=== PATIENT | female | born 1965 | race Caucasian/White ===

== ENCOUNTER → 2016-12-28 | Outpatient (CLI) | payer MEDICARE, MEDICAID ==
[2016-12-28 12:00] LABS: ABSOLUTE EOSINOPHILS # (AUTO) 0.3 10^3/uL (0.0-0.6); ABSOLUTE LYMPHOCYTES (AUTO) 3.6 10^3/uL (0.5-4.7); ABSOLUTE MONOCYTES (AUTO) 0.5 10^3/uL (0.1-1.4); ABSOLUTE NEUT (AUTO) 2.7 10^3/uL (1.7-8.2); BASOPHILS % (AUTO) 0.7 % (0-2); EOSINOPHILS % (AUTO) 3.9 % (0-6); HEMATOCRIT 31.7 % (36.0-47.0); HEMOGLOBIN 10.8 g/dL (12.0-15.5); HGB HCT DIFFERENCE 0.7; LYMPHOCYTES % (AUTO) 50.1 % (13-45); MEAN CORPUSCULAR HEMOGLOBIN 32.1 pg (27.0-33.4); MEAN CORPUSCULAR VOLUME 94 fl (80-97); MONOCYTES % (AUTO) 7.2 % (3-13); RED BLOOD COUNT 3.36 10^6/uL (3.72-5.28); RED CELL DISTRIBUTION WIDTH 13.1 % (11.5-14.0); SEGMENTED NEUTROPHILS % (AUTO) 38.1 % (42-78); WHITE BLOOD COUNT 7.1 10^3/uL (4.0-10.5)
[2016-12-28 12:26] LABS: ALANINE AMINOTRANSFERASE 35 U/L (9-52); ALBUMIN 4.3 g/dL (3.5-5.0); ALKALINE PHOSPHATASE 62 U/L (38-126); ANION GAP 10 (5-19); ASPARTATE AMINO TRANSFERASE 30 U/L (14-36); BILIRUBIN,TOTAL 0.4 mg/dL (0.2-1.3); BLOOD UREA NITROGEN 11 mg/dL (7-20); CALCIUM 9.2 mg/dL (8.4-10.2); CARBON DIOXIDE 28 mmol/L (22-30); CHLORIDE 98 mmol/L (98-107); CHOLESTEROL 152.02 mg/dL (0-200); CREATININE RESULT 0.77 mg/dL (0.52-1.25); Direct HDL 56 mg/dL (>40); GLUCOSE 86 mg/dL (75-110); POTASSIUM 4.4 mmol/L (3.6-5.0); TOTAL PROTEIN 6.6 g/dL (6.3-8.2); TRIGLYCERIDES 166 mg/dL (<150)
[2016-12-28 12:38] LABS: DIRECT LDL 74 mg/dL (<100)
[2016-12-28 12:42] LABS: ERYTHROCYTE SEDIMENTATION RATE 18 mm/hr (0-30)
[2016-12-28 13:18] LABS: VLDL CHOLESTEROL 33.2 mg/dL (10-31)
== END ==
LOC: OD 11:15
DX: R53.83 Other fatigue (principal); Z79.899 Other long term (current) drug therapy
CPT/HCPCS: 36415; 80053; 80061; 82607; 83036; 84443; 85025; 85652

== ENCOUNTER → 2017-01-26 | Outpatient (CLI) | payer MEDICARE ==
[2017-01-26 12:23] LABS: ERYTHROCYTE SEDIMENTATION RATE 15 mm/hr (0-30)
[2017-01-26 13:08] LABS: FOLATE > 20.00 ng/mL (>2.76)
[2017-01-27 13:39] LABS: JO-1 ANTIBODY <0.2 AI (0.0-0.9)
== END ==
LOC: OD 11:02
DX: R06.02 Shortness of breath (principal); D64.9 Anemia, unspecified
CPT/HCPCS: 36415; 71020; 82728; 82746; 83540; 83550; 85045; 85652; 86225; 86235; 86592

== ENCOUNTER → 2017-01-27 | Outpatient (CLI) | payer MEDICARE | LOC: RAD 11:16 | DX: G45.9 Transient cerebral ischemic attack, unspecified (principal); I63.9 Cerebral infarction, unspecified | CPT/HCPCS: 70450 ==

== ENCOUNTER → 2017-02-02 | Outpatient (CLI) | payer MEDICARE, MEDICAID ==
[2017-02-02 14:49] LABS: HIV 1/2 AB DIFFERENTIATION HIV PANEL
== END ==
LOC: OD 13:22
DX: I65.29 Occlusion and stenosis of unspecified carotid artery (principal); G45.9 Transient cerebral ischemic attack, unspecified; M35.00 Sjogren syndrome, unspecified; D64.9 Anemia, unspecified; R53.83 Other fatigue
CPT/HCPCS: 36415; 80074; 86701; 86702

== ENCOUNTER → 2017-02-03 | Outpatient (CLI) | payer MEDICARE | LOC: WI 09:41 | DX: Z12.31 Encounter for screening mammogram for malignant neoplasm of breast (principal); Z78.0 Asymptomatic menopausal state; M85.88 Other specified disorders of bone density and structure, other site | CPT/HCPCS: 77080 ==

== ENCOUNTER → 2017-02-06 | Outpatient (CLI) | payer MEDICAID, MEDICARE | LOC: SP 13:55 | DX: I65.29 Occlusion and stenosis of unspecified carotid artery (principal) | CPT/HCPCS: 93880 ==

== ENCOUNTER → 2017-03-01 | Outpatient (CLI) | payer MEDICARE | LOC: RAD 09:50 | DX: N64.4 Mastodynia (principal) | CPT/HCPCS: 76642; G0279; G0204; 77062; 77066 ==

== ENCOUNTER 2017-03-27 17:54 | Emergency (ER) | payer MEDICARE ==
[2017-03-27] MEDS ORDERED: NORMAL SALINE 1000 ML 1,000 ML IV ONE (18:20)
--- NOTE | 2017-03-27 18:22 | ER Document Report ---
ED Medical Screen (RME) - General Chief Complaint: Shortness Of Breath Stated Complaint: SHORTNESS OF BREATH Time Seen by Provider: 03/27/17 18:17 TRAVEL OUTSIDE OF THE [place] IN LAST 30 DAYS: No - HPI Notes: 03/27/17 18:21 Patient coming in to rule out PE after recent neck surgery neck fusion 2 weeks ago at [place]. - Related Data Allergies/Adverse Reactions: No Known Allergies Allergy (Verified 03/27/17 18:17) Past Medical History Renal/ Medical History: Denies: Hx Peritoneal Dialysis Psychiatric Medical History: Reports: Hx Bipolar Disorder Past Surgical History: Reports: Hx Appendectomy, Hx Orthopedic Surgery Review of Systems - Review of Systems Respiratory: Short of breath Physical Exam - Vital signs Vitals: Temp Pulse Resp BP Pulse Ox 98.2 F 94 14 123/73 97 03/27/17 17:59 03/27/17 17:59 03/27/17 17:59 03/27/17 17:59 03/27/17 17:59 - Respiratory Respiratory status: No respiratory distress Chest status: Nontender Breath sounds: Normal Chest palpation: Normal Course - Re-evaluation Re-evalutation: 03/27/17 18:22 I have greeted and performed a rapid initial assessment of this patient. A comprehensive ED assessment and evaluation of the patient, analysis of test results and completion of the medical decision making process will be conducted by additional ED providers. - Vital Signs Vital signs: Temp Pulse Resp BP Pulse Ox 98.2 F 94 14 123/73 97 03/27/17 17:59 03/27/17 17:59 03/27/17 17:59 03/27/17 17:59 03/27/17 17:59
[2017-03-27 19:09] LABS: ABSOLUTE EOSINOPHILS # (AUTO) 0.2 10^3/uL (0.0-0.6); ABSOLUTE LYMPHOCYTES (AUTO) 3.7 10^3/uL (0.5-4.7); ABSOLUTE MONOCYTES (AUTO) 0.7 10^3/uL (0.1-1.4); ABSOLUTE NEUT (AUTO) 4.9 10^3/uL (1.7-8.2); BASOPHILS % (AUTO) 0.5 % (0-2); HEMATOCRIT 33.2 % (36.0-47.0); HEMOGLOBIN 11.2 g/dL (12.0-15.5); HGB HCT DIFFERENCE 0.4; LYMPHOCYTES % (AUTO) 38.6 % (13-45); MEAN CORPUSCULAR HGB CONC 33.9 g/dL (32.0-36.0); MEAN CORPUSCULAR VOLUME 94 fl (80-97); MONOCYTES % (AUTO) 6.9 % (3-13); RED BLOOD COUNT 3.51 10^6/uL (3.72-5.28); RED CELL DISTRIBUTION WIDTH 13.4 % (11.5-14.0); WHITE BLOOD COUNT 9.5 10^3/uL (4.0-10.5)
[2017-03-27 19:17] LABS: PROTHROMBIN TIME 11.8 SEC (11.4-15.4)
--- NOTE | 2017-03-27 19:17 | ER Document Report ---
ED General - General Mode of Arrival: Ambulatory Information source: Patient TRAVEL OUTSIDE OF THE [place] IN LAST 30 DAYS: No - HPI Patient complains to provider of: shortness of breath Associated symptoms: Other - See above <AMANDA RAHMAN - Last Filed: 03/27/17 19:48> <SIOBHAN ALEJANDRE - Last Filed: 03/27/17 21:37> - General Chief Complaint: Shortness Of Breath Stated Complaint: SHORTNESS OF BREATH Time Seen by Provider: 03/27/17 18:17 Notes: Patient is a 51 year old female who presents to the emergency department complaining of shortness of breath onset 4-5 days ago. Patient reports the shortness has been worsening and keeping her up at night. Patient also states that she has the urge to cough but tries to restrain it. Patient had an anterior cervical fusion surgery performed 2 weeks ago. Patient denies chest pain. Patient was told to come to the ED by her surgeon. PCP: [facility] (AMANDA RAHMAN) - Related Data Allergies/Adverse Reactions: No Known Allergies Allergy (Verified 03/27/17 18:17) Past Medical History - General Information source: Patient - Social History Smoking Status: Never Smoker Family History: Reviewed & Not Pertinent Patient has suicidal ideation: No Patient has homicidal ideation: No Psychiatric Medical History: Reports: Hx Bipolar Disorder Past Surgical History: Reports: Hx Appendectomy, Hx Orthopedic Surgery <AMANDA RAHMAN - Last Filed: 03/27/17 19:48> Review of Systems - Review of Systems Constitutional: No symptoms reported EENT: No symptoms reported Cardiovascular: denies: Chest pain Respiratory: See HPI, Cough, Short of breath Gastrointestinal: No symptoms reported Genitourinary: No symptoms reported Female Genitourinary: No symptoms reported Musculoskeletal: No symptoms reported Skin: No symptoms reported Hematologic/Lymphatic: No symptoms reported Neurological/Psychological: No symptoms reported -: Yes All other systems reviewed and negative <AMANDA RAHMAN - Last Filed: 03/27/17 19:48> Physical Exam - Vital signs Interpretation: Normal - General General appearance: Appears well, Alert - HEENT Head: Normocephalic, Atraumatic, Other - wearing soft neck collar - Respiratory Respiratory status: No respiratory distress - Abdominal Inspection: Normal - Extremities General upper extremity: Normal inspection General lower extremity: Normal inspection - Neurological Neuro grossly intact: Yes Cognition: Normal Orientation: AAOx4 Luis Coma Scale Eye Opening: Spontaneous Luis Coma Scale Verbal: Oriented Luis Coma Scale Motor: Obeys Commands Luis Coma Scale Total: 15 Speech: Normal - Psychological Associated symptoms: Normal affect, Normal mood - Skin Skin Temperature: Warm Skin Moisture: Dry Skin Color: Normal <AMANDA RAHMAN - Last Filed: 03/27/17 19:48> Course - Laboratory Result Diagrams: 03/27/17 18:40 03/27/17 18:40 <AMANDA RAHMAN - Last Filed: 03/27/17 19:48> - Laboratory Result Diagrams: 03/27/17 18:40 03/27/17 18:40 - Diagnostic Test Radiology reviewed: Image reviewed, Reports reviewed - CTA chest is completely normal, specifically no pulmonary emboli. <SIOBHAN ALEJANDRE - Last Filed: 03/27/17 21:37> - Vital Signs Vital signs: Temp Pulse Resp BP Pulse Ox 98.2 F 94 14 123/73 97 03/27/17 17:59 03/27/17 17:59 03/27/17 17:59 03/27/17 17:59 03/27/17 17:59 - Laboratory Laboratory results interpreted by me: 03/27/17 03/27/17 18:40 18:40 RBC 3.51 L Hgb 11.2 L Hct 33.2 L Carbon Dioxide 31 H BUN 4 L ALT 59 H Discharge <AMANDA RAHMAN - Last Filed: 03/27/17 19:48> <PILISIOBHAN - Last Filed: 03/27/17 21:37> - Discharge Clinical Impression: Dyspnea Qualifiers: Dyspnea type: shortness of breath Qualified Code(s): R06.02 - Shortness of breath Condition: Stable Disposition: HOME, SELF-CARE Additional Instructions: Dyspnea, Nonspecific: You were evaluated for shortness of breath, or dyspnea. Dyspnea has many causes, and some are more serious than others. Sometimes it's impossible to diagnose the cause of dyspnea with the tests that are available on an emergency basis. Based on our evaluation today, you do not need hospitalization now. We found no evidence of pneumonia, collapsed lung, blood clots in the lung, tumors , or heart failure. Causes of non-specific dyspnea can include asthma or bronchospasm, hyperventilation, emotional distress, heart disease, emphysema, fibrosis of the lung, and stiffness of the chest wall. In healthy individuals with a single episode, it's sometimes reasonable to do nothing but wait to see if the problem occurs again. Additional tests used to evaluate dyspnea can include cardiac stress testing, echocardiography, pulmonary function testing, CAT scan of the chest, bronchoscopy or pulmonary biopsy. Return if shortness of breath persists or worsens, or if you develop chest pain, fever, cough, confusion, or fainting. The CT scan scan of your chest did not show any abnormalities. There is no clear explanation for your symptoms of shortness of breath. Continue your regular medications. Follow-up with your doctor for recheck and further evaluation if not improving. RETURN TO THE EMERGENCY ROOM IF ANY NEW OR WORSENING SYMPTOMS. Harry Attestation: 03/27/17 21:37 I personally performed the services described in the documentation, reviewed and edited the documentation which was dictated to the scribe in my presence, and it accurately records my words and actions. (SIOBHAN ALEJANDRE) Scribe Documentation - Scribe Written by Harry:: harry Hampton, 03/27/17, 191 acting as scribe for :: Pili <AMANDA RAHMAN - Last Filed: 03/27/17 19:48>
[2017-03-27 19:18] LABS: PARTIAL THROMBOPLASTIN TIME 34.8 SEC (23.5-35.8)
[2017-03-27 19:29] LABS: ALANINE AMINOTRANSFERASE 59 U/L (9-52); ALBUMIN 4.2 g/dL (3.5-5.0); ALKALINE PHOSPHATASE 86 U/L (38-126); ANION GAP 10 (5-19); ASPARTATE AMINO TRANSFERASE 27 U/L (14-36); BILIRUBIN,DIRECT 0.3 mg/dL (0.0-0.4); BILIRUBIN,TOTAL 0.3 mg/dL (0.2-1.3); BLOOD UREA NITROGEN 4 mg/dL (7-20); CARBON DIOXIDE 31 mmol/L (22-30); CHLORIDE 99 mmol/L (98-107); CREATININE RESULT 0.71 mg/dL (0.52-1.25); GLUCOSE 96 mg/dL (75-110); LIPASE 60.6 U/L (23-300); POTASSIUM 4.2 mmol/L (3.6-5.0); TOTAL PROTEIN 7.1 g/dL (6.3-8.2)
--- NOTE | 2017-03-27 21:32 | EKG REPORT ---
SEVERITY:- NORMAL ECG - SINUS RHYTHM : Confirmed by: Bryan Carreon 27-Mar-2017 21:32:08
[2017-03-27 21:42] VITALS: BP 123/72
== END 2017-03-27 21:47 | disposition home or self-care (01) ==
LOC: ER 17:54
DX: R06.02 Shortness of breath (principal); R07.9 Chest pain, unspecified; R05 Cough; Z98.890 Other specified postprocedural states; Z98.1 Arthrodesis status
CPT/HCPCS: 36415; 71275; 80053; 83690; 85025; 85610; 85730; 93005; 93010; 99285

== ENCOUNTER → 2017-04-18 | Outpatient (CLI) | payer MEDICAID, MEDICARE ==
--- NOTE | 2017-04-18 15:24 | RADIOLOGY REPORT (SQ) ---
EXAM DESCRIPTION: CT CHEST WITH; CT SOFT TISSUE NECK WITH COMPLETED DATE/TIME: 04/18/2017 2:40 pm REASON FOR STUDY: ENLARGED LYMPH NODES (R59.0) R59.0 LOCALIZED ENLARGED LYMPH NODES COMPARISON: CT chest same date 04/18/2017, CT angio chest 03/27/2017 TECHNIQUE: CT scan of the soft tissue neck and CT scan of the chest performed using helical scanning technique with dynamic intravenous contrast injection. Images reviewed with lung, soft tissue and b one windows. Reconstructed coronal and sagittal MPR images reviewed. All images stored on PACS. All CT scanners at this facility use dose modulation, iterative reconstruction, and/or weight based d osing when appropriate to reduce radiation dose to as low as reasonably achievable (ALARA). [facility]: Dose Right [facility]: CareDose [facility]: Dose Right [facility]: Teradose 4D [facility]: [employer] CONTRAST TYPE AND DOSE: 80mL Isovue 370- low osmolar. RENAL FUNCTION: None required. The patient is less than 50 years old. RADIATION DOSE: 9.27; 14.68 mGy. LIMITATIONS: None. FINDINGS: SOFT TISSUE NECK: SKULL BASE: Inferior brain parenchyma in the field of view unremarkable. Limited view of the [place] vessels in the field of view unremarkable. Orbital contents, globes normal. MAJOR SALIVARY GLANDS: No masses or abnormal enhancement. No gross evidence of salivary stones. LYMPHADENOPATHY: No bulky cervical adenopathy. There are scattered small bilateral carotid space ly mph nodes less than 8 mm in short axis. MUCOSAL MASSES: No mucosal masses or asymmetry. LARYNX/CORDS: Unremarkable. No imaging evidence of vocal cord paralysis. VESSELS: Arterial structures are widely patent from the aortic arch to the skullbase. Symmetric jug ular veins. No atherosclerotic carotid bifurcation disease. THYROID: Unremarkable SINUSES: No acute findings. Mastoid air cells and middle ear cavities are clear. BONY STRUCTURES: Patient is post recent fusion with hardware at C3-4 and C6-7 with bone graft materi al and anterior fixation plate with anchoring cervical vertebral body screws. No lucency around the hardware worrisome for loosening. Remote prior fusion at C4-5 and C5-6 with bone graft. on the axia l images, the left c3 anchoring screw in the vertebral body abuts the medial edge of the vertebral ar ruby without evidence of luminal compromise. There is no high-grade central or foraminal bony encroa chment in the cervical spine. CHEST: PLEURA: No opacities, nodules, masses. No pneumothorax. No effusions. HILAR AND MEDIASTINAL STRUCTURES: No identified masses or abnormal nodes. HEART AND VASCULAR STRUCTURES: No aneurysm or dissection. No central pulmonary emboli. No pericardi al effusion. HARDWARE: None in the chest. UPPER ABDOMEN: No significant findings. Limited exam. THYROID AND OTHER SOFT TISSUES: No masses. No adenopathy. BONES: No significant finding. OTHER: No other significant finding. IMPRESSION: CT NECK SOFT TISSUES DEMONSTRATES POST CERVICAL FUSION WITH HARDWARE. NO CENTRAL OR FOR AMINAL ENCROACHMENT. NO SOFT TISSUE ABSCESS OR FOCAL SWELLING. NO SIGNIFICANT CERVICAL ADENOPATHY. NORMAL CT OF THE CHEST WITH IV CONTRAST. TECHNICAL DOCUMENTATION: JOB ID: [id number] Quality ID # [id number]: Final reports with documentation of one or more dose reduction techniques (e.g., Au tomated exposure control, adjustment of the mA and/or kV according to patient size, use of iterative reconstruction technique) 2010 [employer]- All Rights Reserved
--- NOTE | 2017-04-18 15:24 | RADIOLOGY REPORT (SQ) ---
EXAM DESCRIPTION: CT CHEST WITH; CT SOFT TISSUE NECK WITH COMPLETED DATE/TIME: 04/18/2017 2:40 pm REASON FOR STUDY: ENLARGED LYMPH NODES (R59.0) R59.0 LOCALIZED ENLARGED LYMPH NODES COMPARISON: CT chest same date 04/18/2017, CT angio chest 03/27/2017 TECHNIQUE: CT scan of the soft tissue neck and CT scan of the chest performed using helical scanning technique with dynamic intravenous contrast injection. Images reviewed with lung, soft tissue and b one windows. Reconstructed coronal and sagittal MPR images reviewed. All images stored on PACS. All CT scanners at this facility use dose modulation, iterative reconstruction, and/or weight based d osing when appropriate to reduce radiation dose to as low as reasonably achievable (ALARA). [facility]: Dose Right [facility]: CareDose [facility]: Dose Right [facility]: Teradose 4D [facility]: [employer] CONTRAST TYPE AND DOSE: 80mL Isovue 370- low osmolar. RENAL FUNCTION: None required. The patient is less than 50 years old. RADIATION DOSE: 9.27; 14.68 mGy. LIMITATIONS: None. FINDINGS: SOFT TISSUE NECK: SKULL BASE: Inferior brain parenchyma in the field of view unremarkable. Limited view of the [place] vessels in the field of view unremarkable. Orbital contents, globes normal. MAJOR SALIVARY GLANDS: No masses or abnormal enhancement. No gross evidence of salivary stones. LYMPHADENOPATHY: No bulky cervical adenopathy. There are scattered small bilateral carotid space ly mph nodes less than 8 mm in short axis. MUCOSAL MASSES: No mucosal masses or asymmetry. LARYNX/CORDS: Unremarkable. No imaging evidence of vocal cord paralysis. VESSELS: Arterial structures are widely patent from the aortic arch to the skullbase. Symmetric jug ular veins. No atherosclerotic carotid bifurcation disease. THYROID: Unremarkable SINUSES: No acute findings. Mastoid air cells and middle ear cavities are clear. BONY STRUCTURES: Patient is post recent fusion with hardware at C3-4 and C6-7 with bone graft materi al and anterior fixation plate with anchoring cervical vertebral body screws. No lucency around the hardware worrisome for loosening. Remote prior fusion at C4-5 and C5-6 with bone graft. on the axia l images, the left c3 anchoring screw in the vertebral body abuts the medial edge of the vertebral ar ruby without evidence of luminal compromise. There is no high-grade central or foraminal bony encroa chment in the cervical spine. CHEST: PLEURA: No opacities, nodules, masses. No pneumothorax. No effusions. HILAR AND MEDIASTINAL STRUCTURES: No identified masses or abnormal nodes. HEART AND VASCULAR STRUCTURES: No aneurysm or dissection. No central pulmonary emboli. No pericardi al effusion. HARDWARE: None in the chest. UPPER ABDOMEN: No significant findings. Limited exam. THYROID AND OTHER SOFT TISSUES: No masses. No adenopathy. BONES: No significant finding. OTHER: No other significant finding. IMPRESSION: CT NECK SOFT TISSUES DEMONSTRATES POST CERVICAL FUSION WITH HARDWARE. NO CENTRAL OR FOR AMINAL ENCROACHMENT. NO SOFT TISSUE ABSCESS OR FOCAL SWELLING. NO SIGNIFICANT CERVICAL ADENOPATHY. NORMAL CT OF THE CHEST WITH IV CONTRAST. TECHNICAL DOCUMENTATION: JOB ID: [id number] Quality ID # [id number]: Final reports with documentation of one or more dose reduction techniques (e.g., Au tomated exposure control, adjustment of the mA and/or kV according to patient size, use of iterative reconstruction technique) 2010 [employer]- All Rights Reserved
== END ==
LOC: RAD 13:56
PROVIDERS: ATTEND Specialist
DX: R59.0 Localized enlarged lymph nodes (principal)
CPT/HCPCS: 70491; 71260